=== PATIENT | male | born 1955 | race Caucasian/White ===

== ENCOUNTER → 2023-08-22 13:36 | Outpatient (CLI) | payer MEDICARE, OTHER, SELFPAY ==
--- NOTE | 2023-08-22 13:39 | DI.ECHO.S_ITS ---
[facility] : : [address] : : [place] : : [id number] : : Phone: [phone] Echocardiogram Report + + :Name: MANUEL AKERS Study Date: 08/22/2023 Height: 69.5 in: :[facility] ReadingLocation: Weight: 170 lb : : Gender: Male BSA: 1.9 m2 : :: 1955 Age: 67 yrs BP: 141/80 mmHg: :Reason For Study: VENTRICULAR TACHYCARDIA : :Ordering Physician: ZEV ALVARADO Performed By: Fela Kruger : :Referring: ZEV ALVARADO : + + Interpretation Summary 1. The left ventricular contractility is moderately compromised. Estimated ejection fraction is 30 to 35% with global hypokinesis. No left ventricular hypertrophy is identified. Normal diastolic function is present. 2. The right ventricular contractility is normal. 3. There is mild enlargement of the right atrium and right ventricle. The left ventricle and left atrium are of normal size. 4. No significant valvular abnormalities are appreciated. 5. No obvious intracardiac shunts are noted. 6. No obvious intracardiac masses nor thrombi appreciated. 7. No hemodynamically significant pericardial effusion identified. Conclusion: Moderately compromised left ventricular systolic function with mild right- sided enlargement and no other significant structural abnormalities. Procedure: A two-dimensional transthoracic echocardiogram with color flow and Doppler was performed. The study quality was technically adequate. There is no prior echocardiogram noted for this patient. The patient had frequent PVCs during the exam. Segments of bigeminy/trigeminy thoughout exam. The heart rate ranged between 75-98 bpm during the study. Left Ventricle: There is normal left ventricular wall thickness. The estimated left ventricular end diastolic volume is 119 ml. The left ventricle is normal in size. Left ventricular systolic function is moderately reduced. The ejection fraction is estimated to be 30-35%. There is moderate global hypokinesis of the left ventricle. Right Ventricle: The right ventricle is mildly dilated. The right ventricular systolic function is normal. Atria: The left atrial size is normal. The right atrium is mildly dilated. There is no Doppler evidence for an interatrial shunt. Mitral Valve: The mitral valve is normal in structure and function. There is trace mitral regurgitation. Aortic Valve: The aortic valve is grossly normal. The aortic valve opens well. There is mild aortic valve sclerosis. There is no aortic valve stenosis. No aortic regurgitation is present. Tricuspid Valve: The tricuspid valve is normal in structure and function. There is trace tricuspid regurgitation. Pulmonary artery pressures cannot be estimated because of the lack of a measurable TR jet velocity. Pulmonic Valve: The pulmonic valve is not well visualized. There is trace pulmonic regurgitation. Great Vessels: The aortic root is normal size. The ascending aorta could not be visualized. The IVC is of normal diameter and collapses greater than 50% with a sniff. This suggests a low right atrial pressure of 3 mm Hg. Pericardium/ Pleura There is no pericardial effusion. There is no pleural effusion. MMode/2D Measurements & Calculations LVIDd: 5.5 cm LVOT diam: 2.3 cm LVIDs: 4.2 cm Ao root diam: 3.4 cm FS: 24.3 % IVSd: 0.69 cm LVPWd: 0.52 cm LV rees. diameter/BSA (cm/m^2): 2.9 LV sys. diameter/BSA (cm/m^2): 2.2 LA A2 area: 21.8 cm2 RA long axis: 5.4 cm LA A4 area: 17.6 cm2 RA area: 22.1 cm2 LA length (vol): 5.8 cm RA vol: 76.9 ml LA vol: 56.7 ml RA : 39.7 ml/m2 LA vol index: 29.2 ml/m2 IVC diam: 1.5 cm RVD1 (basal): 4.4 cm TAPSE: 1.7 cm Doppler Measurements & Calculations Ao V2 max: 131.5 cm/sec LVOT Max Sudheer: 73.6 cm/sec Ao V2 mean: 100.1 cm/sec LV V1 max P.2 mmHg Ao max P.9 mmHg LV V1 VTI: 17.2 cm Ao mean P.3 mmHg TARA(I,D): 2.5 cm2 Ao V2 VTI: 28.2 cm TARA(V,D): 2.2 cm2 sev ratio: 0.61 TARA indexed to BSA (cm^2/m^2): 1.3 MV E max sudheer: 45.9 cm/sec PA V2 max: 94.7 cm/sec MV A max sudheer: 49.6 cm/sec PA V2 mean: 70.1 cm/sec MV E/A: 0.93 PA mean P.1 mmHg Med Peak E' Sudheer: 7.2 cm/sec PA pr(Accel): 37.9 mmHg E/E' med: 6.3 Lat Peak E' Sudheer: 11.7 cm/sec E/E' lat: 3.9 E/e' average: 5.1 MV dec time: 0.27 sec SV(LVOT): 69.1 ml Reading Physician:
--- NOTE | 2023-08-22 19:05 | DI.NM.S_ITS ---
DATE OF SERVICE: 08/22/2023 PROCEDURE: Exercise stress test. INDICATIONS: PVCs, hypertension, and hyperlipidemia. CARDIAC STRESS: Patient underwent exercise stress test under the supervision of an attending staff. The patient walked on Rafael protocol for 9 minutes and 15 seconds, achieved maximum heart rate of 166, which was 109% of target heart rate. Resting blood pressure 140/82 mmHg. Peak blood pressure 188/100 mmHg. Achieved 10.1 METS of workload. BLAKE -25%. Baseline rhythm was sinus with frequent PVCs, mostly monomorphic, but some polymorphic PVCs were seen as well and occasional ventricular couplets. During stress and predominantly at peak, PVCs got significantly suppressed. At peak exercise, no PVCs were seen. However, in recovery, they reappeared including ventricular bigeminy pattern. No ventricular tachycardia seen. No chest discomfort. Had some shortness of breath. CONCLUSION: Exercise stress test is negative for inducible ischemia. Good exercise tolerance. BLAKE -25%. 10.1 METS of workload. Maximum blood pressure 188/100. Frequent PVCs at rest, which is predominantly monomorphic; however, some polymorphic PVCs seen as well. Significant suppression during exercise without any PVCs at peak exercise, with recurrence of PVCs in recovery, including ventricular bigeminy pattern. No ventricular tachycardia. No anginal symptoms. As far as exercise stress test is concerned, low risk exercise stress test. Mckay Callejas - VERITO/lucy/KERRY doc#: [id number]/job#: [id number] dd: 08/22/2023 16:48:00 dt: 08/22/2023 18:06:00 DICTATING /COPIES TO: Shyla Fall MD COPIES MNE: ADRIA;
== END ==
LOC: ECHO 13:38
PROVIDERS: Referring Provider Internal Medicine; Visit Provider Internal Medicine
DX: I49.3 Ventricular premature depolarization (principal); I47.20 Ventricular tachycardia, unspecified; I35.8 Other nonrheumatic aortic valve disorders; I10 Essential (primary) hypertension; E78.5 Hyperlipidemia, unspecified
CPT/HCPCS: 93017; 93306